=== PATIENT | male | born 1945 | race Caucasian/White ===

== ENCOUNTER 2017-01-22 06:48 | Emergency (ER) | payer MEDICARE, MEDICAID ==
[~2017-01-22] VITALS: Ht 170.2 cm; Wt 71.0 kg
[~2017-01-22 06:48] MED LIST: ADVAIR DISK1 IN; ALBUTEROL SUL0.083 % IN; ALBUTEROL0.5 % IN; ASPIRIN EC LOW81 MG PO; ASPIRIN325 MG OR; ASPIRIN81 MG PO; ATENOLOL25 MG PO; BAYER ASPIRIN325 MG PO; CRESTOR40 MG PO; DILANTIN100 MG OR; DILANTIN100 MG PO; FOLIC ACID1 MG PO; GABAPENTIN600 MG PO; K-DUR/KLOR-CON20 MEQ PO; KEPPRA XR500 MG PO; KEPPRA250 M1 PO; LASIX40 MG PO; LEVETIRACETAM500 MG PO; LISINOPRIL2.5 MG PO; LOPRESSOR50 MG OR; LORTAB 7.5 OR; METOPROL TAR25 MG PO; MORPHINE SUL30 M3 PO; MULTI VIT OR; NITROGLYCER0.4 MG; NITROGLYCER0.4 MG SL; NORTRIPTYLIN10 MG PO; OXYCODONE HCL15 MG PO; PERCOCET 10/31 COMBO PO; PHENYTOIN EX100 M1 PO; PLAVIX75 MG OR; PLAVIX75 MG PO; PRAVASTATIN80 MG OR; PROTONIX40 M2 OR; PROTONIX40 MG PO; PROVENTIL HFA IN; TENORMIN25 MG OR; VENTOLIN HF1 IN; XANAX0.25 MG OR
[2017-01-22 07:00] VITALS: BP 128/83
[2017-01-22] MEDS ORDERED: (None)3.5 GM OS (07:28)
[2017-01-22] MEDS ORDERED: GENTAMICIN15 ML/BTL OS (07:28)
== END 2017-01-22 07:40 | disposition home or self-care (01) ==
LOC: ED 06:48
DX: H01.006 Unspecified blepharitis left eye, unspecified eyelid (principal); I25.10 Atherosclerotic heart disease of native coronary artery without angina pectoris; F17.210 Nicotine dependence, cigarettes, uncomplicated; Z95.5 Presence of coronary angioplasty implant and graft; Z95.1 Presence of aortocoronary bypass graft

== ENCOUNTER 2018-02-04 22:50 | Emergency (ER) | payer MEDICARE, MEDICAID ==
[~2018-02-04] VITALS: Ht 172.7 cm; Wt 72.7 kg
[~2018-02-04 22:50] MED LIST changes: +(None)3.5 GM OS; +GENTAMICIN15 ML/BTL OS
[2018-02-04 23:36] VITALS: BP 132/72
== END 2018-02-04 23:36 | disposition home or self-care (01) ==
LOC: ED 22:50
DX: R20.3 Hyperesthesia (principal); J44.9 Chronic obstructive pulmonary disease, unspecified; Z95.5 Presence of coronary angioplasty implant and graft; F17.210 Nicotine dependence, cigarettes, uncomplicated; Z98.890 Other specified postprocedural states

== ENCOUNTER 2018-05-18 22:28 | Emergency (ER) | payer MEDICARE, MEDICAID ==
[~2018-05-18] VITALS: Ht 172.7 cm; Wt 73.0 kg
[2018-05-18 23:13] LABS: HEMOGLOBIN 12.3 g/dl (14.0-18.0); IMMATURE GRANULOCYTES 0.3 % (0.0-5.0); MEAN CELL VOLUME 85.5 fL CALC (80.0-100.0); MEAN CORPUSCULAR HGB 28.4 pG CALC (26.0-32.0); MEAN CORPUSCULAR HGB CONC 33.2 g/L CALC (32.0-36.0); NEUT# 4.69 thou/uL (1.82-7.42); RED BLOOD COUNT 4.33 mill/uL (4.70-6.10); RED CELL DISTRI WIDTH 13.8 % (11.5-15.5)
[2018-05-18 23:21] LABS: ALBUMIN 3.6 g/dL (3.2-5.0); ALKALINE PHOSPHATASE 69 u/l (38-126); ANION GAP 11 (6-22 (CALC)); BILIRUBIN, TOTAL 0.2 mg/dL (0.0-1.4); BUN 11 mg/dL (8-23); BUN/CREATININE RATIO 14 (12-20 (CALC)); CARBON DIOXIDE 24 mmol/l (22-30); CHLORIDE 110 mmol/l (95-108); CREATININE 0.8 mg/dL (0.7-1.3); GFR > 60 ML/MIN (>=60 (CALC)); GFR FOR AFR.AMER. > 60 ML/MIN (>=60 (CALC)); POTASSIUM 3.9 mmol/l (3.5-5.1); SGOT/AST 23 u/l (19-48); SODIUM 141 mmol/l (137-146); TOTAL PROTEIN 6.6 g/dL (6.3-8.2)
[2018-05-18 23:32] LABS: ACT PARTIAL THROMBO TIME 29.3 SECONDS (20.0-32.5); INTERNATIONAL NORMALIZED RATIO 1.1 RATIO (0.7-1.3)
[2018-05-18 23:33] LABS: MYOGLOBIN 43 ng/mL (0 - 121)
[2018-05-19 00:25] VITALS: BP 118/66
== END 2018-05-19 01:00 | disposition left against medical advice (07) ==
LOC: ED 22:28
PROVIDERS: Emergency Medicine
DX: R07.9 Chest pain, unspecified (principal); Z91.19 Patient's noncompliance with other medical treatment and regimen; Z95.9 Presence of cardiac and vascular implant and graft, unspecified; Z95.1 Presence of aortocoronary bypass graft

== ENCOUNTER 2018-10-10 18:17 | Emergency (ER) | payer MEDICARE, MEDICAID ==
[~2018-10-10] VITALS: Ht 172.7 cm; Wt 75.0 kg
[2018-10-10 19:02] LABS: HEMATOCRIT 37.3 % (39.0-50.0); HEMOGLOBIN 11.8 g/dl (14.0-18.0); IMMATURE GRANULOCYTES 0.4 % (0.0-5.0); MEAN CORPUSCULAR HGB 25.4 pG CALC (26.0-32.0); MEAN CORPUSCULAR HGB CONC 31.6 g/L CALC (32.0-36.0); NEUT# 5.74 thou/uL (1.82-7.42); RED BLOOD COUNT 4.65 mill/uL (4.70-6.10); RED CELL DISTRI WIDTH 15.5 % (11.5-15.5)
[2018-10-10 19:04] LABS: MEAN CELL VOLUME 80.2 fL CALC (80.0-100.0)
[2018-10-10 19:16] LABS: ALBUMIN 4.2 g/dL (3.2-5.0); ALKALINE PHOSPHATASE 69 u/l (38-126); ANION GAP 16 (6-22 (CALC)); BILIRUBIN, TOTAL 0.2 mg/dL (0.0-1.4); BUN 12 mg/dL (8-23); BUN/CREATININE RATIO 16 (12-20 (CALC)); CARBON DIOXIDE 18 mmol/l (22-30); CHLORIDE 110 mmol/l (95-108); CREATININE 0.8 mg/dL (0.7-1.3); GFR > 60 ML/MIN (>=60 (CALC)); GFR FOR AFR.AMER. > 60 ML/MIN (>=60 (CALC)); POTASSIUM 4.2 mmol/l (3.5-5.1); SGOT/AST 27 u/l (19-48); SODIUM 140 mmol/l (137-146); TOTAL PROTEIN 7.2 g/dL (6.3-8.2)
[2018-10-10 19:28] LABS: MYOGLOBIN 26 ng/mL (0 - 121)
[2018-10-10 22:15] VITALS: BP 104/59
[2018-10-10 22:19] LABS: URINE BILIRUBIN - DIPSTICK NEGATIVE (NEGATIVE); URINE BLOOD DIPSTICK NEGATIVE (NEGATIVE); URINE COLOR YELLOW; URINE GLUCOSE - DIPSTICK NEGATIVE (NEGATIVE); URINE KETONE NEGATIVE (NEGATIVE); URINE LEUK ESTERASE NEGATIVE (NEGATIVE); URINE NITRITE - DIPSTICK NEGATIVE (Negative); URINE PROTEIN - DIPSTICK NEGATIVE (NEG-TRACE); URINE SPECIFIC GRAVITY 1.025; URINE UROBILINOGEN - DIPSTICK 0.2 E.U./dL (0.2)
== END 2018-10-10 22:15 | disposition home or self-care (01) ==
LOC: ED 18:17
PROVIDERS: Emergency Medicine
DX: R07.81 Pleurodynia (principal); J44.9 Chronic obstructive pulmonary disease, unspecified; I25.10 Atherosclerotic heart disease of native coronary artery without angina pectoris; F17.210 Nicotine dependence, cigarettes, uncomplicated; Z95.1 Presence of aortocoronary bypass graft; Z95.5 Presence of coronary angioplasty implant and graft; R06.02 Shortness of breath
CPT/HCPCS: Q9967

== ENCOUNTER 2020-11-25 04:32 | Observation (INO) | payer MEDICARE, MEDICAID ==
[~2020-11-25] VITALS: Ht 172.7 cm; Wt 70.0 kg
--- NOTE | 2020-11-25 04:56 | NUR ---
PT ARRIVED VIA EMS, MOVED TO ROOM 10 FOR TRIAGE.
--- NOTE | 2020-11-25 04:59 | NUR ---
BREATHING TREATMENT GIVEN.
[2020-11-25 05:13] LABS: HEMATOCRIT 37.5 % (39.0-50.0); IMMATURE GRANULOCYTES 0.4 % (0.0-5.0); MEAN CORPUSCULAR HGB CONC 32.5 g/dL CAL (32.0-36.0); NEUT# 6.73 thou/uL (1.82-7.42); RED BLOOD COUNT 4.21 mill/uL (4.70-6.10); RED CELL DISTRI WIDTH 14.7 % (11.5-15.5)
[2020-11-25 05:18] LABS: HEMOGLOBIN 12.2 g/dl (14.0-18.0); MEAN CELL VOLUME 89.1 fL CALC (80.0-100.0)
[2020-11-25 05:32] LABS: ACT PARTIAL THROMBO TIME 29.5 SECONDS (20.0-32.5); PROTHROMBIN TIME 10.8 SECONDS (9.0-12.5)
[2020-11-25 05:33] LABS: URINE BILIRUBIN - DIPSTICK NEGATIVE (NEGATIVE); URINE BLOOD DIPSTICK TRACE-LYSED (NEGATIVE); URINE COLOR YELLOW; URINE GLUCOSE - DIPSTICK NEGATIVE (NEGATIVE); URINE KETONE NEGATIVE (NEGATIVE); URINE LEUK ESTERASE NEGATIVE (NEGATIVE); URINE PROTEIN - DIPSTICK NEGATIVE (NEG-TRACE); URINE SPECIFIC GRAVITY <=1.005; URINE UROBILINOGEN - DIPSTICK 0.2 E.U./dL (0.2)
[2020-11-25 05:33] LABS: ALBUMIN 4.1 g/dL (3.2-5.0); ALKALINE PHOSPHATASE 64 u/l (38-126); BUN 10 mg/dL (8-23); BUN/CREATININE RATIO 15 (12-20 (CALC)); CHLORIDE 101 mmol/l (95-108); CREATININE 0.6 mg/dL (0.7-1.3); GFR > 60 ML/MIN (>=60 (CALC)); GFR FOR AFR.AMER. > 60 ML/MIN (>=60 (CALC)); LIPASE 38 u/l (23-300); POTASSIUM 4.2 mmol/l (3.5-5.1); SGOT/AST 31 u/l (19-48); TOTAL PROTEIN 7.4 g/dL (6.3-8.2)
[2020-11-25 05:35] LABS: ANION GAP 10 (6-22 (CALC)); BILIRUBIN, TOTAL 0.3 mg/dL (0.0-1.4); CARBON DIOXIDE 25 mmol/l (22-30); SODIUM 132 mmol/l (137-146)
[2020-11-25 05:40] LABS: URINE NITRITE - DIPSTICK NEGATIVE (Negative)
[2020-11-25] MEDS ORDERED: SYMBICORT 80-4.5MCG (06:00)
[2020-11-25] MEDS ORDERED: LEVETIRACETAM750 M1 PO (06:01)
[2020-11-25] MEDS ORDERED: TAMSULOSIN HCL0.4 MG PO (06:02)
[2020-11-25] MEDS ORDERED: MORPHINE SUL30 M5 PO (06:04)
[2020-11-25] MEDS ORDERED: TIZANIDINE4 MG PO (06:05)
--- NOTE | 2020-11-25 06:12 | NUR ---
PT IS BREATHING EASIER CP IS RESOLVING PT FEELS MUCH IMPROVED NOW
--- NOTE | 2020-11-25 06:30 | NUR ---
Admission Note Report Given to: LIS MAC Transported by: X Wheelchair Stretcher Transported with: X Nurse Transporter X Patent IV X O2 X Cone Machine Operator Location: ICU XX MS2
--- NOTE | 2020-11-25 07:00 | NUR ---
PT ARRIVED VIA STRETCHER ACCOMPANIED BY TIERA CONNOLLY WITH O2 VIA NC @2L. PT A&O X4. EXERTIONAL SOB NOTED. PT CONFIRMS THE USE OF PRN O2 AT HOME @2L. DENIES ANY ACTIVE CP AT THIS TIME, NITRO PASTE NOTED ON CHEST, PLACED THIS AM. SCHEDULED MORNING NITRO PASTE NOT GIVEN. NIPPLE MAKER IN PLACE. POST CATARACT SURGERY (NOT RECENT), GLASSESS AT BEDSIDE. UPPER AND LOWER DENTURES IN PLACE. MOIST/PRODUCTIVE COUGH NOTED. PT STATES HE DOES HAVE SOME DIFFICULTY SWALLOWING AT TIMES. CURRENTLY SMOKES 1/2 PPD. COARSE BREATH SOUNDS HEARD UPON ASUCULTATION. ACTIVE BOWEL SOUNDS X4 QUADRANTS HEARD UPON ASUCULTATION. PT REPORTS BM 11/24. PT C/O OF NECK AND BACK PAIN, PT IS SEEN BY PAIN MANAGEMENT IN [place] . #20 EMS SITE TO [facility] AND PATENT. ORIENTED PT TO ROOM. ASSESSMENT COMPLETED. DISCUSSED POC. CALL LIGHT AND PERSONAL BELONGINGS WITHIN REACH.
[2020-11-25 07:11] VITALS: BP 128/44
[2020-11-25 10:58] VITALS: BP 110/61
--- NOTE | 2020-11-25 12:52 | NUR ---
PT SITTING IN BED. O2 VIA NC @2L IN PLACE. MEDICATIONS GIVEN. CALL LIGHT WITHIN REACH.
--- NOTE | 2020-11-25 13:02 | NUR ---
ORDER OBTAINED FOR 21 MG NICOTINE PATCH BY . ORDER WRITTEN AND FAXED TO PHARMACY
[2020-11-25 14:50] VITALS: BP 96/52
[2020-11-25 17:30] VITALS: BP 107/62
--- NOTE | 2020-11-25 17:31 | NUR ---
PT C/O CP, STATES IT HAS GOTTEN WORSE. DR SAMAYOA NOTIFIED. CURRENTLY SR 90'S WITH IVCD ON CUSTOMS INVESTIGATOR. VSS.
--- NOTE | 2020-11-25 17:42 | NUR ---
NEW ORDERS OBTAINED FROM DR SAMAYOA, ORDERS OBTAINED FOR TROPONIN, EKG, AND MORPHINE 2 MG IV NOW. RT NOTIFIED. PT UPDATED ON POC.
--- NOTE | 2020-11-25 17:46 | NUR ---
JOSE CRUZ RT AT BEDSIDE OBTAINING EKG
--- NOTE | 2020-11-25 18:08 | NUR ---
2 MG IV MORPHINE GIVEN PER DR SAMAYOA'S ORDERS. TO BE REASSESSED.
[2020-11-25 19:00] VITALS: BP 106/59
--- NOTE | 2020-11-25 19:57 | NUR ---
PATIENT RESTING IN BED AT THIS TIME WITH EYES CLOSED. RESPS ARE EVEN AND UNLABORED. TELE MONITOR IN PLACE. SALINE LOCK TO RAC INTACT. CALL LIGHT IN REACH. WILL CONT TO MONITOR.
[2020-11-25 20:30] VITALS: BP 118/73
--- NOTE | 2020-11-25 21:00 | NUR ---
PATIENT AWAKE ALERT AND SITTING ON THE SIDE OF THE BED,SHAKING AND C/O SEVERE HEADACHE, CHEST PAIN AND BACK PAIN. HIGH ANXIETY THAT THIS PAIN IS NOW 10/10. PATIENT STATES THAT HE DID GET SOME RELIEF EARLIER WITH THE MORPHINE GIVEN AND FELL ASLEEP BUT WOKE UP WITH THIS SEVERE PAIN. TELE MONITOR IN PLACE AND READING SR-IVCD 82 AT THIS TIME. O2 VIA NASAL CANNULA IN PLACE-O2 SAT IS 96%. BP-118/73, RESP RATE OF 24. SALINE LOCK TO RAC INTACT. PATIENT WITH AUDIBLE WHEEZE, COARSE THROUGHOUT. RT CALLED FOR PRN NEB TREATMENT. PATIENT MEDICATED WITH HS MEDS. DR. TINOCO WAS CALLED AND NEW ORDERS RECIEVED. WILL MEDICATE WHEN PROFILED ON EMAR. SAFETY PRECAUTIONS REINFORCED. CALL LIGHT IN REACH. WILL CONT TO MONITOR.
--- NOTE | 2020-11-25 21:45 | NUR ---
PATIENT RESTING IN BED-MEDICATED WITH ATIVAN 0.5MG IVP ORDERED FOR ANXIETY. SIDERAILS ARE PADDED FOR SEIZURE PRECAUTIONS. [facility] WILL CONT TO MONITOR.
--- NOTE | 2020-11-25 23:00 | NUR ---
PATIENT RESTING IN BED IN HIGH [place] POSITION WITH O2 VIA NASAL CANNULA IN PLACE. EYES ARE CLOSED AND RESPS ARE EVEN AND UNLABORED AT THIS TIME. TELE MONITOR IN PLACE. CALL LIGHT IN REACH. WILL CONT TO MONITOR.
[2020-11-26] VITALS: BP 119/61
--- NOTE | 2020-11-26 02:34 | NUR ---
PATIENT RESTING IN BED WITH HOB ELEVATED WITH EYES CLOSED AND O2 VIA NASAL CANNULA IN PLACE. RESPS ARE EVEN AND UNLABORED. TELE MONITOR IN PLACE. CALL LIGHT IN REACH. WILL CONT TO MONITOR.
--- NOTE | 2020-11-26 03:56 | NUR ---
PATIENT RESTING IN BED AT THIS TIME WITH O2 VIA NASAL CANNULA IN PLACE. O2 SAT AT THIS TIME IS 95%. TELE MONITOR IN PLACE. SALINE LOCK IN PLACE. NO COMPLAINTS AT THIS TIME. CALL LIGHT IN REACH. WILL CONT TO MONITOR.
[2020-11-26 04:00] VITALS: BP 100/56
[2020-11-26 08:00] VITALS: BP 119/63
--- NOTE | 2020-11-26 08:00 | NUR ---
ASSESSMENT IS COMPLETED: IV SITE IS FREE FROM REDNESS OR EDEMA. HR IS MREG,PULSES ARE STRONG X4, ABD IS SOFT WITH ACTIVE BS. BREATH SOUNDS ARE DIMINISHED. O2 @ 2LITERS WITH NC. TELE MONITOR IN PLACE.
--- NOTE | 2020-11-26 09:34 | NUR ---
PT HAD A LARGE COUGHING FIT. VOMITED SOME WHITE PHLEGMN
--- NOTE | 2020-11-26 09:56 | NUR ---
PT CONTINUES TO HAVE EPI PAIN FROM THE COUGHING. ENCOURAGED TO RELAX, NOT TO OVEREXERT
[2020-11-26] MEDS ORDERED: GABAPENTIN800 MG PO (09:59)
[2020-11-26] MEDS ORDERED: KEPPRA750 M2 PO (10:39)
[2020-11-26] MEDS ORDERED: SYMBICORT1 AE1 IN (10:44)
[2020-11-26 11:00] VITALS: BP 109/59
--- NOTE | 2020-11-26 12:00 | NUR ---
PT IS RELAXING IN BED NO DISTRESS NOTED.
--- NOTE | 2020-11-26 13:15 | NUR ---
PT C/O IV SITE BURNING WHILE RECEIVING AZITHROMAX. DECREASED THE AMOUNT NO RELIEF. DISCONTINUED IV SITE NO REDNESS OR EDEMA AT THE SITE.
--- NOTE | 2020-11-26 14:15 | NUR ---
PT IS WANTING TO GO HOME. NOT WANTING ANOTHER IV SITE/
--- NOTE | 2020-11-26 14:24 | NUR ---
PLACED A CALL TO DR TINOCO INFORMING OF PT WANTING TO GO HOME.
--- NOTE | 2020-11-26 14:35 | NUR ---
DR TINOCO CALLED BACK AND WILL PLACE DISCHARGE INSTRUCTIONS INBETWEEN PTS.
--- NOTE | 2020-11-26 16:00 | NUR ---
PT IS WAITING FOR DISCHARGE INSTRUCTIONS.
[2020-11-26] MEDS ORDERED: ATIVAN0.5 MG PO (16:30)
[2020-11-26] MEDS ORDERED: PREDNISONE10 MG PO (16:30)
[2020-11-26] MEDS ORDERED: ZITHROMAX250 MG PO (16:30)
--- NOTE | 2020-11-26 16:37 | NUR ---
DISCHARGE INSTRUCTIONS GIVEN AND TRANSPORTD PT TO ER FOR HIS RIDE. NO DISTRESS NOTED. IV SITE ALREADY DC'D. TELE DC'D. CONTINUE TO OBSERVE AND MONITOR.
--- NOTE | 2020-11-28 12:50 | NUR ---
Pneumonia post discharge call completed 11/28/20. Pt. states he is not feeling well. Experiencing SOB and gastric pain. Pt. has not obtained medication prescribed at discharge. Pt. has not contacted his PCP. Pt. states he is going to contact his now and formulate a plan of action. I spoke with CM Maritza. She states pt. has roommate but roommate does not help patient. Pt. may be eligible for Home Health Services per CM. Attempted to contact pt again to check on his progress but was unable to leave [facility] (no set up) when he did not answer. C< will get HH order from [facility] and proceed accordingly.
== END 2020-11-26 16:57 | disposition home health service (06) ==
LOC: ED 04:32 → ED-I 05:50 → ED 06:12 → MS2 06:13
PROVIDERS: ADMIT Internal Medicine; ATTEND Internal Medicine
DX: J44.1 Chronic obstructive pulmonary disease with (acute) exacerbation (principal); J96.10 Chronic respiratory failure, unspecified whether with hypoxia or hypercapnia; I25.10 Atherosclerotic heart disease of native coronary artery without angina pectoris; G89.4 Chronic pain syndrome; F41.9 Anxiety disorder, unspecified; E78.5 Hyperlipidemia, unspecified; N40.0 Benign prostatic hyperplasia without lower urinary tract symptoms; G40.409 Other generalized epilepsy and epileptic syndromes, not intractable, without status epilepticus; F17.200 Nicotine dependence, unspecified, uncomplicated; Z95.5 Presence of coronary angioplasty implant and graft; Z99.81 Dependence on supplemental oxygen; Z79.891 Long term (current) use of opiate analgesic; Z95.1 Presence of aortocoronary bypass graft; Z20.822 Contact with and (suspected) exposure to COVID-19
CPT/HCPCS: G0378; J2060

== ENCOUNTER 2021-06-11 10:09 | Emergency (ER) | payer MEDICARE, MEDICAID ==
[~2021-06-11] VITALS: Ht 172.7 cm; Wt 56.0 kg
[~2021-06-11 10:09] MED LIST changes: +ATIVAN0.5 MG PO; +GABAPENTIN800 MG PO; +KEPPRA750 M2 PO; +LEVETIRACETAM750 M1 PO; +MORPHINE SUL30 M5 PO; +PREDNISONE10 MG PO; +SYMBICORT 80-4.5MCG; +SYMBICORT1 AE1 IN; +TAMSULOSIN HCL0.4 MG PO; +TIZANIDINE4 MG PO; +ZITHROMAX250 MG PO
[2021-06-11 11:13] LABS: HEMATOCRIT 38.5 % (39.0-50.0); HEMOGLOBIN 12.5 g/dl (14.0-18.0); IMMATURE GRANULOCYTES 0.2 % (0.0-5.0); MEAN CELL VOLUME 80.7 fL CALC (80.0-100.0); MEAN CORPUSCULAR HGB 26.2 pG CALC (26.0-32.0); MEAN CORPUSCULAR HGB CONC 32.5 g/dL CAL (32.0-36.0); NEUT# 14.41 thou/uL (1.82-7.42); RED BLOOD COUNT 4.77 mill/uL (4.70-6.10); RED CELL DISTRI WIDTH 16.3 % (11.5-15.5)
[2021-06-11] MEDS ORDERED: OMEPRAZOLE20 MG PO (11:15)
[2021-06-11] MEDS ORDERED: PREDNISONE10 MG PO (11:18)
[2021-06-11] MEDS ORDERED: GABAPENTIN800 MG PO (11:20)
[2021-06-11] MEDS ORDERED: METHOCARBAMOL500 MG PO (11:21)
[2021-06-11 11:27] LABS: ALBUMIN 3.9 g/dL (3.2-5.0); ALKALINE PHOSPHATASE 83 u/l (38-126); AMYLASE 108 u/l (30-110); BILIRUBIN, TOTAL 0.4 mg/dL (0.0-1.4); BUN 15 mg/dL (8-23); BUN/CREATININE RATIO 21 (12-20 (CALC)); CHLORIDE 99 mmol/l (95-108); CREATININE 0.7 mg/dL (0.7-1.3); GFR > 60 ML/MIN (>=60 (CALC)); GFR FOR AFR.AMER. > 60 ML/MIN (>=60 (CALC)); LIPASE 27 u/l (23-300); MAGNESIUM 1.5 mg/dL (1.6-2.3); POTASSIUM 3.4 mmol/l (3.5-5.1); SODIUM 137 mmol/l (137-146); TOTAL PROTEIN 7.4 g/dL (6.3-8.2)
[2021-06-11 11:29] LABS: ANION GAP 15 (6-22 (CALC)); CARBON DIOXIDE 26 mmol/l (22-30); SGOT/AST 88 u/l (19-48)
[2021-06-11 13:19] VITALS: BP 106/57
[2021-06-11 13:36] LABS: URINE BILIRUBIN - DIPSTICK NEGATIVE (NEGATIVE); URINE COLOR YELLOW; URINE GLUCOSE - DIPSTICK NEGATIVE (NEGATIVE); URINE KETONE >=80 mg/dL (NEGATIVE); URINE LEUK ESTERASE NEGATIVE (NEGATIVE); URINE PH 5.5 (4.5-8.0); URINE PROTEIN - DIPSTICK NEGATIVE (NEG-TRACE); URINE UROBILINOGEN - DIPSTICK 0.2 E.U./dL (0.2)
[2021-06-11 13:43] LABS: URINE BLOOD DIPSTICK TRACE (NEGATIVE); URINE NITRITE - DIPSTICK NEGATIVE (Negative)
== END 2021-06-11 15:00 | disposition short-term general hospital (02) ==
LOC: ED 10:09
PROVIDERS: Emergency Medicine
DX: R10.84 Generalized abdominal pain (principal); R11.2 Nausea with vomiting, unspecified; R93.5 Abnormal findings on diagnostic imaging of other abdominal regions, including retroperitoneum; J44.9 Chronic obstructive pulmonary disease, unspecified; F17.200 Nicotine dependence, unspecified, uncomplicated; Z95.1 Presence of aortocoronary bypass graft; Z95.5 Presence of coronary angioplasty implant and graft; Z20.822 Contact with and (suspected) exposure to COVID-19
CPT/HCPCS: Q9967

== ENCOUNTER 2024-02-19 10:18 | Emergency (ER) | payer MEDICARE, MEDICAID ==
[~2024-02-19] VITALS: Ht 170.2 cm; Wt 68.0 kg
[~2024-02-19 10:18] MED LIST changes: +EMGALITY100 MG/ML SC; +METHOCARBAMOL500 MG PO; +OMEPRAZOLE20 MG PO
[2024-02-19] MEDS ORDERED: Diph, Acellular Pertussis, Tet 0.5 ML/VIAL (Tdap) SDV IM ONE (10:25)
[2024-02-19] MEDS ORDERED: methylPREDNISolone SODIUM SUCC 125 MG/2 ML SDV IV ONE (10:25)
[2024-02-19] MEDS ORDERED: LIDOcaine HCl 1% (Local Anesth.) 20 ML VIAL STI STA (10:25)
[2024-02-19] MEDS ORDERED: IPRATROPIUM-Albuterol 0.5MG-2.5MG/3 ML NEB ONE ×2 (10:25)
[2024-02-19] MEDS ORDERED: POVIDONE IODINE 0.5 OZ/BTL TOP ONE (10:25)
[2024-02-19] MEDS ORDERED: ceFAZolin Sodium 1 GM in SODIUM CHLORIDE 0.9% 50 ML IV ONE (10:25)
[2024-02-19 10:51] LABS: BASO% 0.8 % (0-3); EOS% 4.7 % (0-8); HEMOGLOBIN 13.7 g/dl (14.0-18.0); LYMPH% 35.4 % (15-41); MEAN CELL VOLUME 90.5 fL CALC (80.0-100.0); MEAN CORPUSCULAR HGB 30.2 pG CALC (26.0-32.0); MEAN CORPUSCULAR HGB CONC 33.4 g/dL CAL (32.0-36.0); MONO% 8.8 % (2-13); NEUT# 4.14 thou/uL (1.82-7.42); NEUT% 50.3 % (42-76); RED BLOOD COUNT 4.53 mill/uL (4.70-6.10); RED CELL DISTRI WIDTH 13.5 % (11.5-15.5)
[2024-02-19 11:14] LABS: ALBUMIN 4.3 g/dL (3.2-5.0); BILIRUBIN, TOTAL 0.3 mg/dL (0.2-1.3); CREATININE 0.6 mg/dL (0.7-1.3); POTASSIUM 4.6 mmol/l (3.5-5.1); TOTAL PROTEIN 7.4 g/dL (6.3-8.2)
[2024-02-19 12:28] VITALS: BP 155/72
[2024-02-19] MEDS ORDERED: CEPHALEXIN500 M1 PO (12:29)
== END 2024-02-19 12:39 | disposition home or self-care (01) ==
LOC: ED 10:18
PROVIDERS: Family Medicine
PROC: 0HQEXZZ Repair Left Lower Arm Skin, External Approach (ICD-10-PCS; principal; 2024-02-19)
DX: S51.812A Laceration without foreign body of left forearm, initial encounter (principal); J44.1 Chronic obstructive pulmonary disease with (acute) exacerbation; F17.200 Nicotine dependence, unspecified, uncomplicated; W29.8XXA Contact with other powered hand tools and household machinery, initial encounter; Y92.009 Unspecified place in unspecified non-institutional (private) residence as the place of occurrence of the external cause; Z95.5 Presence of coronary angioplasty implant and graft

== ENCOUNTER 2024-02-27 09:22 | Emergency (ER) | payer MEDICARE, MEDICAID ==
[~2024-02-27] VITALS: Ht 170.2 cm; Wt 54.4 kg
[~2024-02-27 09:22] MED LIST changes: +CEPHALEXIN500 M1 PO
[2024-02-27 09:33] VITALS: BP 121/66
[2024-02-27] MEDS ORDERED: CEPHALEXIN500 M1 PO (09:47)
[2024-02-27 09:54] VITALS: BP 121/66
== END 2024-02-27 10:03 | disposition home or self-care (01) ==
LOC: ED 09:22
DX: S51.812D Laceration without foreign body of left forearm, subsequent encounter (principal); X58.XXXD Exposure to other specified factors, subsequent encounter; J44.9 Chronic obstructive pulmonary disease, unspecified; Z95.1 Presence of aortocoronary bypass graft; Z95.5 Presence of coronary angioplasty implant and graft; F17.200 Nicotine dependence, unspecified, uncomplicated

== ENCOUNTER 2024-06-08 19:16 | Observation (INO) | payer MEDICARE, MEDICAID ==
[2024-06-08] VITALS (17 sets, daily range): BP systolic 106–146; BP diastolic 47–80
[~2024-06-08] VITALS: Ht 170.2 cm; Wt 57.0 kg
[~2024-06-08 19:16] MED LIST changes: +amioDARONE HCl 150 MG/3 ML SDV IV ONE
--- NOTE | 2024-06-08 19:16 | NUR ---
PT TO RM 6 VIA EMS
[2024-06-08] MEDS ORDERED: IPRATROPIUM-Albuterol 0.5MG-2.5MG/3 ML NEB ONE (19:25)
[2024-06-08] MEDS ORDERED: methylPREDNISolone SODIUM SUCC 125 MG/2 ML SDV IV ONE (19:25)
[2024-06-08] MEDS ORDERED: ALBUTEROL SULFATE 2.5 MG VIAL IN ONE (19:30)
[2024-06-08] MEDS ORDERED: MORPHINE SULFATE 4 MG/ML VIAL IV ONE ×2 (19:30→20:40)
[2024-06-08 19:55] LABS: BASO% 1.1 % (0-3); EOS% 2.2 % (0-8); HEMATOCRIT 43.8 % (39.0-50.0); HEMOGLOBIN 14.6 g/dl (14.0-18.0); LYMPH% 27.5 % (15-41); MEAN CELL VOLUME 89.6 fL CALC (80.0-100.0); MEAN CORPUSCULAR HGB 29.9 pG CALC (26.0-32.0); MEAN CORPUSCULAR HGB CONC 33.3 g/dL CAL (32.0-36.0); MONO% 8.4 % (2-13); NEUT# 5.75 thou/uL (1.82-7.42); NEUT% 60.8 % (42-76); RED BLOOD COUNT 4.89 mill/uL (4.70-6.10); RED CELL DISTRI WIDTH 13.8 % (11.5-15.5)
--- NOTE | 2024-06-08 20:00 | NUR ---
PT MEDICATED PER MD ORDERS. PT UPDATED ON POC, PT VOICE SUNDERSTADNING. PT VOICES MODERATE RELIEF OF PAIN. RT AT BEDSIDE AT THIS TIME. PT CALL LIGHT WITHIN REACH.
[2024-06-08 20:04] LABS: ALBUMIN 4.4 g/dL (3.2-5.0); ALKALINE PHOSPHATASE 75 u/l (38-126); ANION GAP 13 (6-22 (CALC)); CARBON DIOXIDE 26 mmol/l (22-30); CHLORIDE 106 mmol/l (95-108); POTASSIUM 4.4 mmol/l (3.5-5.1); SGOT/AST 52 u/l (19-48); SODIUM 140 mmol/l (137-146); TOTAL PROTEIN 7.6 g/dL (6.3-8.2)
[2024-06-08 20:08] LABS: BILIRUBIN, TOTAL 0.7 mg/dL (0.2-1.3); BUN 20 mg/dL (8-23); BUN/CREATININE RATIO 25 (12-20 (CALC)); CREATININE 0.8 mg/dL (0.7-1.3); ESTIMATED GFR 92 ML/MIN (>=90 (CALC))
[2024-06-08 20:11] LABS: ACT PARTIAL THROMBO TIME 28.7 SECONDS (20.0-32.5); INTERNATIONAL NORMALIZED RATIO 1.1 RATIO (0.7-1.3)
[2024-06-08 20:16] LABS: PROTHROMBIN TIME 11.9 SECONDS (9.0-12.5)
[2024-06-08] MEDS ORDERED: KETOROLAC TROMETHAMINE 30 MG/ML SDV IV ONE (20:35)
[2024-06-08] MEDS ORDERED: DOXYCYCLINE HYCLATE 100 MG in SODIUM CHLORIDE 0.9% 100 ML IV ONE (20:40)
[2024-06-08] MEDS ORDERED: ACETAMINOPHEN 500 MG TAB PO ONE (20:40)
--- NOTE | 2024-06-08 20:55 | NUR ---
PT TELE MONITOR READING POSSIBLE V-TACH. CRASH CART AT BEDSIDE, PT PLACED ON AED PADS PLACED ON PT. EKG TAKEN. ADDITIONAL STAFF AT BEDSIDE.
[2024-06-08] MEDS ORDERED: SODIUM CHLORIDE 250 ML IV ONE (20:59)
[2024-06-08] MEDS ORDERED: amioDARONE HCl 150 MG/3 ML SDV IV ONE (21:01)
--- NOTE | 2024-06-08 21:24 | NUR ---
PT MEDICATED PER MD ORDERS. PT UPDATED ON POC, AWAITING FURTHER ORDERS/RESULTS AT THIS TIME. PT VOICES UNDERSTADNING WITH NO FURTHER QUESTIONS.
[2024-06-08] MEDS ORDERED: amioDARONE HCl 450 MG in SODIUM CHLORIDE 250 ML IV PRN (21:25)
--- NOTE | 2024-06-08 21:59 | NUR ---
CALLED DR. TINOCO, DISCUSSED PT SITUATION. DR. TINOCO VOICES TO ADMIT PT ON ICU.
--- NOTE | 2024-06-08 22:09 | NUR ---
PT UPDATED ON POC, PT WILL BE ADMITTED TO ICU . PT VOICES UNDERSTADNING WITH NO FURTHER QUESTIONS. PT VOICES APPRECIATION OF CARE. PT CALL LIGHT WITHIN REACH.
[2024-06-08] MEDS ORDERED: IPRATROPIUM-Albuterol 0.5MG-2.5MG/3 ML IN PRN (22:15)
--- NOTE | 2024-06-08 22:31 | NUR ---
CALLED ICU, SPOKE WITH KEO MAC. GAVE PT REPORT.
--- NOTE | 2024-06-08 23:00 | NUR ---
PATIENT TRASNPORTED TO ICU BY Re ABRAMS RN.
[2024-06-08] MEDS ORDERED: GABAPENTIN 100 MG/CAP PO SCH (23:03)
[2024-06-08] MEDS ORDERED: PHENYTOIN EXTENDED 100 MG/CAP PO SCH (23:03)
[2024-06-08] MEDS ORDERED: FLUTICASONE/SALMETEROL 250 MCG/50 MCG PER DOSE INH IN SCH (23:04)
[2024-06-08] MEDS ORDERED: DOXYCYCLINE HYCLATE 100 MG in SODIUM CHLORIDE 0.9% 100 ML IV SCH (23:05)
[2024-06-08] MEDS ORDERED: MAGNESIUM HYDROXIDE 30 ML UDC PO PRN (23:05)
[2024-06-08] MEDS ORDERED: Zaleplon 5 MG/CAP PO PRN (23:05)
[2024-06-08] MEDS ORDERED: ACETAMINOPHEN 325 MG/TAB PO PRN (23:05)
--- NOTE | 2024-06-08 23:05 | NUR ---
RECEIVED PT IN ICU BED 4 AAOX4 AND GARVEY WITHOUT ANY DIFFICULTY. PT DENIES ANY CHEST PAIN AT THIS TIME. PT C/O SEVERE H/A AND DENIES ANY DIZZINESS ON ASSESSMENT. PT STATES SOB THAT IS CHRONIC DUE TO HX OF COPD. O2 SAT 98% ON 2L VIA NC. PT HAS AMIODARONE DRIP INFUSING AT 1MG/HR. HR 60 PER MONITOR WITHOUT ANY ECTOPIES. PT ORIENTED TO ICU.
--- NOTE | 2024-06-08 23:43 | NUR ---
PT C/O CHEST PAIN AT THIS TIME. PT STATES PAIN IS A 5/10 ON PAIN SCALE. HR 58 SBP 122/47. DR. SAMAYOA CALLED AT THIS TIME. PT VERY ANXIOUS. AMIODARONE DRIP CONTINUE TO INFUSE AT 1 MG/HR.
[2024-06-08] MEDS ORDERED: MORPHINE SULFATE 4 MG/ML VIAL IV PRN (23:45)
[2024-06-08] MEDS ORDERED: LORazepam 0.5 MG/TAB PO PRN (23:45)
--- NOTE | 2024-06-08 23:50 | NUR ---
DR. SAMAYOA RETURNED CALL AND MADE AWARE OF PT STATUS AND C/O PAIN. MORPHINE 2 MG IV ORDERED. SEE MD PARRA SHEET.
[2024-06-09] VITALS (37 sets, daily range): BP systolic 82–141; BP diastolic 32–66
--- NOTE | 2024-06-09 00:14 | NUR ---
PT C/O CHEST PAIN AT THIS TIME. HR SB-57 PER MONITOR. NO CYANOSIS OR DIAPHORESIS NOTED ON ASSESSMENT. MORPHINE 2 MG IV GIVEN. CONTINUE TO MONITOR PT FOR PAIN.
--- NOTE | 2024-06-09 00:27 | NUR ---
PT C/O DIFFICULTY SLEEPING. PT GIVEN SONATA. CONTINUE TO MONITOR PT FOR ANY CHANGES. COMFORT AND SAFETY MEASURES CONTINUED.
--- NOTE | 2024-06-09 02:15 | NUR ---
PT C/O CHEST PAIN HR 50 BP 92/48 AT THIS TIME. AMIODARONE DRIP INFUSING AT 1 MG/HR. NO CYANOSIS OR DIAPHORESIS NOTED. PT DENIES ANY N/V OR DIZZINESS. DR. SAMAYOA CALLED AND NOTIFIED OF PT CONDITION. ORDERS TO DC AMIODARONE DRIP GIVEN. SEE MD ORDER SHEET.
[2024-06-09] MEDS ORDERED: SODIUM CHLORIDE 0.9% 1,000 ML IV PRN (03:00)
[2024-06-09] MEDS ORDERED: CLARIFY DOSE PO PRN (03:00)
[2024-06-09] MEDS ORDERED: MORPHINE SULFATE 10 MG/5 ML UDC PO PRN (03:35)
--- NOTE | 2024-06-09 03:49 | NUR ---
PT C/O PAIN TO EPIGASTRIC AREA. PT STATES PAIN IS A 9/10 ON PAIN SCALE. HR-SB 55. NO ECTOPIES NOTED. NO CYANOSIS OR DIAPHORESIS NOTED, MORPHINE 30 MG IV GIVEN.
--- NOTE | 2024-06-09 04:05 | NUR ---
PT ASLEEP AND EASILY AROUSABLE AT THIS TIME. NO ACUTE DISTRESS NOTED. NO S/S OF CHEST PAIN OR DISCOMFORT. CONTINUE TO MONITOR PT FOR ANY CHANGES OR DECREASE IN CARDIAC OUTPUT OR TISSUE PERFUSION.
[2024-06-09 05:08] LABS: CHOLESTEROL HDL RATIO 2.5 (<4.4 (CALC))
[2024-06-09 05:19] LABS: MAGNESIUM 1.9 mg/dL (1.6-2.3)
[2024-06-09] MEDS ORDERED: methylPREDNISolone Sod Succ 40 MG/ML SDV IV SCH ×2 (06:00)
--- NOTE | 2024-06-09 06:30 | NUR ---
PT STABLE AT THIS TIME AND DENIES ANY PAIN. NS INFUSING @100 ML/HR WITHOUT ANY DIFFICULTY. PT WATCHING TV AND COMPLETING AM CARE. O2 REMAIN INUSE AT 2 L VIA NC. COMFORT AND SFETY MEASURES MAINTAINED. PT INSTRUCTED TO NOTIFY NURSE IF ANY CHEST PAIN OR RESP DISTRESS. PT VERBALIZED UNDERSTANDING.
[2024-06-09] MEDS ORDERED: PANTOPRAZOLE SODIUM Sesquihydr 40 MG/TAB PO SCH (09:00)
[2024-06-09] MEDS ORDERED: MORPHINE SULFATE 4 MG/ML VIAL IV SCH (09:00)
[2024-06-09] MEDS ORDERED: Pantoprazole Sodium 40 MG VIAL (Protonix) IV SCH (09:05)
[2024-06-09 09:50] LABS: BASO% 0.4 % (0-3); EOS% 0.1 % (0-8); HEMATOCRIT 41.3 % (39.0-50.0); HEMOGLOBIN 13.8 g/dl (14.0-18.0); IMMATURE GRANULOCYTES 0.1 % (0.0-5.0); LYMPH% 21.8 % (15-41); MEAN CELL VOLUME 90.8 fL CALC (80.0-100.0); MEAN CORPUSCULAR HGB 30.3 pG CALC (26.0-32.0); MEAN CORPUSCULAR HGB CONC 33.4 g/dL CAL (32.0-36.0); MONO% 7.2 % (2-13); NEUT# 6.58 thou/uL (1.82-7.42); NEUT% 70.4 % (42-76); RED BLOOD COUNT 4.55 mill/uL (4.70-6.10)
[2024-06-09 10:00] LABS: BILIRUBIN, TOTAL 0.5 mg/dL (0.2-1.3); CREATININE 0.8 mg/dL (0.7-1.3); POTASSIUM 4.4 mmol/l (3.5-5.1); TOTAL PROTEIN 6.7 g/dL (6.3-8.2)
[2024-06-09] MEDS ORDERED: ZOFRAN4 MG/TAB PO (10:15)
--- NOTE | 2024-06-09 11:10 | NUR ---
Discharge instructions reviewed with patient and son whom verbalized understanding. Patient transported to [facility] via wheelchair for discharge.
[2024-06-09] MEDS ORDERED: ENOXAPARIN SODIUM 40 MG/0.4 ML SYR SC SCH (21:00)
[2024-06-14] MEDS ORDERED: AMOX/K CLAV875 M1 PO (09:34)
== END 2024-06-09 11:10 ==
LOC: ED 19:16 → ED-I 19:43 → ED 20:39 → ICU 20:40
PROVIDERS: Family Medicine; ADMIT Internal Medicine; ATTEND Internal Medicine
DX: R07.9 Chest pain, unspecified (principal); R10.9 Unspecified abdominal pain; R00.0 Tachycardia, unspecified; J44.1 Chronic obstructive pulmonary disease with (acute) exacerbation; G89.4 Chronic pain syndrome; I25.10 Atherosclerotic heart disease of native coronary artery without angina pectoris; E78.5 Hyperlipidemia, unspecified; G40.909 Epilepsy, unspecified, not intractable, without status epilepticus; Z95.1 Presence of aortocoronary bypass graft; Z95.5 Presence of coronary angioplasty implant and graft; Z79.52 Long term (current) use of systemic steroids; Z20.822 Contact with and (suspected) exposure to COVID-19
CPT/HCPCS: J0282

== ENCOUNTER 2024-08-21 17:47 | Emergency (ER) | payer MEDICARE, MEDICAID ==
[~2024-08-21] VITALS: Ht 170.2 cm; Wt 68.0 kg
[~2024-08-21 17:47] MED LIST changes: +AMOX/K CLAV875 M1 PO; +ZOFRAN4 MG/TAB PO; -amioDARONE HCl 150 MG/3 ML SDV IV ONE
[2024-08-21 17:54] VITALS: BP 156/73
[2024-08-21] MEDS ORDERED: IPRATROPIUM-Albuterol 0.5MG-2.5MG/3 ML NEB ONE ×2 (17:55)
[2024-08-21] MEDS ORDERED: ALBUTEROL SULFATE 2.5 MG VIAL IN ONE (17:55)
[2024-08-21] MEDS ORDERED: Diph, Acellular Pertussis, Tet 0.5 ML/VIAL (Tdap) SDV IM ONE (17:55)
[2024-08-21 18:01] VITALS: BP 145/83
[2024-08-21 18:31] VITALS: BP 166/73
[2024-08-21 18:46] VITALS: BP 166/73
== END 2024-08-21 18:48 | disposition home or self-care (01) ==
LOC: ED 17:47
DX: S51.811A Laceration without foreign body of right forearm, initial encounter (principal); S41.111A Laceration without foreign body of right upper arm, initial encounter; J44.9 Chronic obstructive pulmonary disease, unspecified; F17.200 Nicotine dependence, unspecified, uncomplicated; W01.0XXA Fall on same level from slipping, tripping and stumbling without subsequent striking against object, initial encounter; Y92.009 Unspecified place in unspecified non-institutional (private) residence as the place of occurrence of the external cause; Z95.5 Presence of coronary angioplasty implant and graft
CPT/HCPCS: 90715